=== PATIENT | male | born 1950 ===

== ENCOUNTER 2019-10-16 16:09 | Outpatient (REF) | payer OTHER, SELFPAY ==
[2019-10-16 22:08] LABS: HCT 39.8 % (40.0-50.0); HGB 13.3 g/dL (13.5-17.5); Mean Corp. HGB Concentration 33.4 g/dL (32.0-36.0); Mean Corpuscular Hemoglobin 31.1 pg (27.0-33.0); Mean Platelet Volume 11.2 fL (8.0-11.0); Platelet Count 250 x1000/uL (130-400); RBC 4.28 m/cumm (4.50-6.00); RBC Distribution Width 12.3 % (11.8-14.1); White Blood Cell Count 5.98 k/cumm (4.4-10.8)
[2019-10-16 22:30] LABS: ALT 42 U/L (16-63); Anion Gap 6.9 mmol/L (3-11); BUN 18 mg/dL (7-18); CO2 27.1 mmol/L (21.0-32.0); CREATININE 1.03 mg/dL (0.70-1.30); Calcium 8.9 mg/dL (8.5-10.1); Chloride 104 mmol/L (98-107); Glucose 87 mg/dL (74-106); LDL CHOLESTEROL 59 mg/dL (<100); Potassium 4.1 mmol/L (3.5-5.1); Sodium 138 mmol/L (136-145); TSH 2.43 uIU/mL (0.36-3.74)
[2019-10-16 22:50] LABS: Creatine Kinase 123 U/L (39-308)
== END 2019-10-16 16:29 ==
LOC: NCHCN 16:09
PROVIDERS: PCP Internal Medicine; Visit Provider Internal Medicine
DX: Z00.00 Encounter for general adult medical examination without abnormal findings (principal); K21.9 Gastro-esophageal reflux disease without esophagitis; Z98.61 Coronary angioplasty status; C44.319 Basal cell carcinoma of skin of other parts of face
CPT/HCPCS: 80048; 82550; 83721; 85027; 84443; 84460

== ENCOUNTER 2019-10-21 10:52 | Outpatient (REF) | payer OTHER, SELFPAY ==
[2019-10-21 19:59] LABS: Ferritin 142 ng/mL (26-388)
[2019-10-21 20:26] LABS: Iron 88 ug/dL (65-175); Total Iron Binding Capacity 252 ug/dL (250-450); Transferrin Sat 35 % (20-55)
== END 2019-10-21 11:12 ==
LOC: NCHCN 10:52
PROVIDERS: PCP Internal Medicine; Visit Provider Internal Medicine
DX: R53.83 Other fatigue (principal)
CPT/HCPCS: 82728; 83540; 83550; 85045

== ENCOUNTER 2019-12-04 11:37 | Outpatient (REF) | payer OTHER, SELFPAY ==
[2019-12-04 22:58] LABS: HCT 41.5 % (40.0-50.0); HGB 13.7 g/dL (13.5-17.5); MCH 30.9 pg (27.0-33.0); MCV 93.5 fL (80-95); MPV 11.1 fL (8.0-11.0); Platelet Count 239 10^3/uL (130-400); RBC 4.44 10^6/uL (4.36-5.78); RDW 12.2 % (11.8-14.1); RDW-SD 42.6 fL; Reticulocyte 1.1 % (0.5-2.4); WBC 5.91 10^3/uL (4.4-10.8)
== END 2019-12-04 11:57 ==
LOC: NCHCN 11:37
PROVIDERS: PCP Internal Medicine; Visit Provider Internal Medicine
DX: R53.83 Other fatigue (principal)
CPT/HCPCS: 85027; 85045

== ENCOUNTER 2020-10-21 16:03 | Outpatient (REF) | payer OTHER, SELFPAY ==
[2020-10-21 21:08] LABS: ALT 32 U/L (16-63); Anion Gap 7.4 mmol/L (3-11); BUN 19 mg/dL (7-18); CO2 27.6 mmol/L (21.0-32.0); Calcium 8.6 mg/dL (8.5-10.1); Calculated LDL 52 mg/dL (<100); Chloride 106 mmol/L (98-107); Cholesterol 119 mg/dL (<200); Glucose 75 mg/dL (74-106); HDL Cholesterol 55 mg/dL (40-60); Potassium 4.6 mmol/L (3.5-5.1); Sodium 141 mmol/L (136-145); Triglyceride 62 mg/dL (<150)
== END 2020-10-21 16:04 | disposition home or self-care (01) ==
LOC: NCHCN 16:03
PROVIDERS: PCP Internal Medicine; Visit Provider Internal Medicine
DX: Z00.00 Encounter for general adult medical examination without abnormal findings (principal); K21.9 Gastro-esophageal reflux disease without esophagitis; E78.5 Hyperlipidemia, unspecified; Z98.61 Coronary angioplasty status
CPT/HCPCS: 80048; 80061; 84460

== ENCOUNTER 2021-10-28 18:37 | Outpatient (REF) | payer MEDICARE, SELFPAY ==
[2021-10-28 19:20] LABS: Anion Gap 5.3 mmol/L (3-11); BUN 18 mg/dL (7-18); CO2 27.7 mmol/L (21.0-32.0); CREATININE 1.1 mg/dL (0.70-1.30); Calcium 8.5 mg/dL (8.5-10.1); Chloride 106 mmol/L (98-107); Glucose 91 mg/dL (74-106); Potassium 4.3 mmol/L (3.5-5.1); Sodium 139 mmol/L (136-145)
[2021-10-28 19:34] LABS: Calculated LDL 56 mg/dL (<100); Cholesterol 120 mg/dL (<200); HDL Cholesterol 58 mg/dL (40-60); Triglyceride 34 mg/dL (<150)
== END 2021-10-28 18:38 | disposition home or self-care (01) ==
LOC: NCHCN 18:37
PROVIDERS: PCP Internal Medicine; Visit Provider Internal Medicine
DX: R53.83 Other fatigue (principal); E78.5 Hyperlipidemia, unspecified; K21.9 Gastro-esophageal reflux disease without esophagitis; Z98.61 Coronary angioplasty status
CPT/HCPCS: 80048; 80061

== ENCOUNTER 2022-10-31 12:13 | Outpatient (REF) | payer MEDICARE, SELFPAY ==
[2022-10-31 19:52] LABS: ALT 33 U/L (16-63); Anion Gap 3.9 mmol/L (3-11); BUN 15 mg/dL (7-18); CO2 29.1 mmol/L (21.0-32.0); CREATININE 1.1 mg/dL (0.70-1.30); Calcium 8.6 mg/dL (8.5-10.1); Calculated LDL 63 mg/dL (<100); Chloride 106 mmol/L (98-107); Cholesterol 129 mg/dL (<200); Estimated GFR 71.77 (mL/min/1.73m2); Glucose 74 mg/dL (74-106); HDL Cholesterol 58 mg/dL (40-60); Potassium 4.9 mmol/L (3.5-5.1); Sodium 139 mmol/L (136-145); Triglyceride 41 mg/dL (<150)
[2022-10-31 20:25] LABS: Creatine Kinase 127 U/L (39-308)
== END 2022-10-31 12:14 | disposition home or self-care (01) ==
LOC: NCHCN 12:13
PROVIDERS: PCP Internal Medicine; Visit Provider Internal Medicine
DX: K22.2 Esophageal obstruction (principal); Z98.61 Coronary angioplasty status; K21.9 Gastro-esophageal reflux disease without esophagitis; E78.5 Hyperlipidemia, unspecified
CPT/HCPCS: 80048; 80061; 82550; 84460

== ENCOUNTER 2023-11-15 22:54 | Outpatient (REF) | payer MEDICARE, SELFPAY ==
[2023-11-15 22:28] LABS: ALT 37 U/L (16-63); Anion Gap 6.9 mmol/L (3-11); BUN 15 mg/dL (7-18); CO2 30.1 mmol/L (21.0-32.0); CREATININE 1.2 mg/dL (0.70-1.30); Calcium 9.3 mg/dL (8.5-10.1); Calculated LDL 61 mg/dL (<100); Chloride 104 mmol/L (98-107); Cholesterol 138 mg/dL (<200); Creatine Kinase 105 U/L (39-308); Estimated GFR 64.25 (mL/min/1.73m2); Glucose 82 mg/dL (74-106); HDL Cholesterol 68 mg/dL (40-60); Sodium 141 mmol/L (136-145); Triglyceride 48 mg/dL (<150)
[2023-11-17 09:38] LABS: Hepatitis C Ab w Rflx HCV PCR Negative (Negative)
== END 2023-11-15 22:55 | disposition home or self-care (01) ==
LOC: NCHCN 22:54
PROVIDERS: PCP Internal Medicine; Visit Provider Internal Medicine
DX: E78.5 Hyperlipidemia, unspecified (principal)
CPT/HCPCS: 80048; 80061; 82550; 86803; 84460

== ENCOUNTER 2024-11-18 16:23 | Outpatient (REF) | payer MEDICARE, SELFPAY ==
[2024-11-18 19:35] LABS: ALT 40 U/L (16-63); Anion Gap 7.0 mmol/L (3-11); BUN 15 mg/dL (7-18); CO2 29.0 mmol/L (21.0-32.0); Calcium 9.0 mg/dL (8.5-10.1); Calculated LDL 78 mg/dL (<100); Chloride 105 mmol/L (98-107); Cholesterol 152 mg/dL (<200); Creatine Kinase 209 U/L (39-308); Estimated GFR 79.47 (mL/min/1.73m2); Glucose 85 mg/dL (74-106); HDL Cholesterol 65 mg/dL (>or=40); Potassium 4.3 mmol/L (3.5-5.1); Sodium 141 mmol/L (136-145); Triglyceride 46 mg/dL (<150)
== END 2024-11-18 16:24 | disposition home or self-care (01) ==
LOC: NCHCN 16:23
PROVIDERS: PCP Internal Medicine; Visit Provider Internal Medicine
DX: E78.5 Hyperlipidemia, unspecified (principal)
CPT/HCPCS: 80048; 80061; 82550; 84460